=== PATIENT | female | born 1945 ===

== ENCOUNTER 2024-07-31 12:00 | Inpatient (IN) | payer OTHER ==
[~2024-07-31] VITALS: Ht 152.4 cm; Wt 74.8 kg
[2024-07-31] MEDS ORDERED: VERAPAMIL ER240 MG PO (13:26)
[2024-07-31] MEDS ORDERED: IRBESARTAN-HCT1 EAC1 PO (13:26)
[2024-07-31] MEDS ORDERED: CARDURA XL4 MG PO (13:26)
[2024-07-31 13:31] VITALS: BP 150/77
[2024-07-31 15:16] LABS: RH POSITIVE
[2024-08-06] MEDS ORDERED: MORPHINE SULFATE 4 MG/ML VIAL IV ONE ×2 (16:10→17:40)
[2024-08-06] MEDS ORDERED: ONDANSETRON HCL 2 MG/ML VIAL IV PRN (17:15)
[2024-08-06] MEDS ORDERED: MORPHINE SULFATE 4 MG/ML VIAL IV PRN (17:15)
[2024-08-06] MEDS ORDERED: RINGERS SOLUTION,LACTATED 1,000 ML IV SCH (17:30)
[2024-08-06] MEDS ORDERED: DEXTROSE 50 % IN WATER 0.5 G/ML DISP.SYRIN IV PRN (17:30)
[2024-08-06] MEDS ORDERED: INSULIN LISPRO 1,000 UNIT/10 ML UNITS SUBCUTANEO PRN ×2 (17:30)
[2024-08-06] MEDS ORDERED: CEFAZOLIN SODIUM 1,000 MG VIAL IV ONE (17:45)
[2024-08-06] MEDS ORDERED: MORPHINE SULFATE 4 MG,MORPHINE SULFATE 2 MG IV PRN (17:45)
[2024-08-06] MEDS ORDERED: CEFAZOLIN SODIUM 1,000 MG VIAL IV SCH (18:00)
[2024-08-06] MEDS ORDERED: MORPHINE SULFATE 5 MG/ML VIAL IV ONE (18:40)
[2024-08-06 20:47] LABS: HEMATOCRIT 35.4 % (36.0-45.00); HEMOGLOBIN 12.3 g/dL (12.0-15.00); MEAN CELL VOLUME 96.3 fL (80.00-100.00); MEAN CORPUSCULAR HEMOGLOBIN 33.4 pg (27.00-32.0); MEAN CORPUSCULAR HGB CONC 34.6 g/dl (32.0-36.0); PLATELET COUNT 192 K/uL (150-450); RED BLOOD COUNT 3.67 M/uL (4.00-6.00); RED CELL DISTRIBUTION WIDTH 12.7 % (11.5-14.5)
[2024-08-06 20:56] VITALS: BP 150/84
[2024-08-07] VITALS: BP 180/66
[2024-08-07 01:00] VITALS: BP 180/66
[2024-08-07] MEDS ORDERED: ENALAPRILAT DIHYDRATE 1.25 MG/ML VIAL IV PRN (01:30)
[2024-08-07] MEDS ORDERED: NEURONTIN300 MG PO (07:14)
[2024-08-07] MEDS ORDERED: IBU800 MG PO (07:14)
[2024-08-07] MEDS ORDERED: CIPRO500 MG PO (07:14)
[2024-08-07 08:25] VITALS: BP 160/80
[2024-08-07] MEDS ORDERED: IRBESARTAN 300 MG TABLET PO SCH (09:00)
[2024-08-07] MEDS ORDERED: DOXAZOSIN MESYLATE 4 MG TABLET PO SCH (09:00)
[2024-08-07] MEDS ORDERED: ENOXAPARIN SODIUM 40 MG/0.4 ML SYRINGE SUBCUTANEO SCH (09:00)
== END 2024-08-07 12:27 | disposition home or self-care (01) | DRG 743 ==
LOC: OB/GYN 08-06 08:20 → O/R 08-06 08:20 → SURH 08-06 12:00 → OB/GYN 08-06 17:58
PROVIDERS: ADMIT Obstetrics & Gynecology Gynecology; ATTEND Obstetrics & Gynecology Gynecology
PROC: 0JQC0ZZ Repair Pelvic Region Subcutaneous Tissue and Fascia, Open Approach (ICD-10-PCS; 2024-08-06)
PROC: 0USG7ZZ Reposition Vagina, Via Natural or Artificial Opening (ICD-10-PCS; 2024-08-06)
PROC: 0UT97ZZ Resection of Uterus, Via Natural or Artificial Opening (ICD-10-PCS; principal; 2024-08-06 12:15)
DX: D25.9 Leiomyoma of uterus, unspecified (principal); N81.2 Incomplete uterovaginal prolapse; N84.0 Polyp of corpus uteri; Z20.822 Contact with and (suspected) exposure to COVID-19